=== PATIENT | male | born 1990 | race Caucasian/White ===

== ENCOUNTER 2025-02-14 00:21 | Emergency (ER) | payer OTHER ==
[~2025-02-14] VITALS: Ht 185.4 cm; Wt 90.7 kg
== END 2025-02-14 02:30 | disposition home or self-care (01) ==
LOC: ER 00:21
DX: S61.211A Laceration without foreign body of left index finger without damage to nail, initial encounter (principal); W45.8XXA Other foreign body or object entering through skin, initial encounter; Y99.0 Civilian activity done for income or pay
CPT/HCPCS: 12001; 73140; 99283-25